=== PATIENT | male | born 1955 ===

== ENCOUNTER 2018-11-03 19:24 | Outpatient (REF) | payer BC, SELFPAY ==
[2018-11-03 19:42] LABS: Anion Gap 10.1 mmol/L (3-11); BUN 14 mg/dL (7-18); CO2 27.9 mmol/L (21.0-32.0); CREATININE 0.92 mg/dL (0.70-1.30); Chloride 105 mmol/L (98-107); Glucose 121 mg/dL (70-100); Potassium 4.2 mmol/L (3.5-5.1); Sodium 143 mmol/L (136-145); TSH 1.65 uIU/mL (0.358-3.74)
== END 2018-11-03 19:44 ==
LOC: NCHCN 19:24
PROVIDERS: PCP Internal Medicine; Visit Provider Internal Medicine
DX: M65.839 Other synovitis and tenosynovitis, unspecified forearm (principal); I10 Essential (primary) hypertension
CPT/HCPCS: 80048; 84443

== ENCOUNTER 2020-01-29 13:18 | Outpatient (REF) | payer MEDICAID, SELFPAY ==
[2020-01-29 20:30] LABS: Anion Gap 9.3 mmol/L (3-11); BUN 12 mg/dL (7-18); CO2 26.7 mmol/L (21.0-32.0); CREATININE 0.85 mg/dL (0.70-1.30); Calcium 9.2 mg/dL (8.5-10.1); Calculated LDL 122 mg/dL (<100); Chloride 103 mmol/L (98-107); Cholesterol 181 mg/dL (<200); Glucose 111 mg/dL (74-106); HDL Cholesterol 38 mg/dL (40-60); Potassium 4.4 mmol/L (3.5-5.1); Sodium 139 mmol/L (136-145); TSH 1.11 uIU/mL (0.36-3.74); Triglyceride 109 mg/dL (<150)
== END 2020-01-29 13:38 ==
LOC: NCHCN 13:18
PROVIDERS: PCP Internal Medicine; Visit Provider Internal Medicine
DX: Z00.00 Encounter for general adult medical examination without abnormal findings (principal)
CPT/HCPCS: 80048; 80061; 84443

== ENCOUNTER 2021-02-20 17:49 | Outpatient (REF) | payer MEDICAID, SELFPAY ==
[2021-02-20 19:48] LABS: Anion Gap 9.2 mmol/L (3-11); BUN 13 mg/dL (7-18); CO2 26.8 mmol/L (21.0-32.0); CREATININE 0.9 mg/dL (0.70-1.30); Chloride 107 mmol/L (98-107); Glucose 99 mg/dL (74-106); Potassium 3.8 mmol/L (3.5-5.1); Sodium 143 mmol/L (136-145)
== END 2021-02-20 17:50 | disposition home or self-care (01) ==
LOC: NCHCN 17:49
PROVIDERS: PCP Internal Medicine; Visit Provider Internal Medicine
DX: I10 Essential (primary) hypertension (principal); N20.9 Urinary calculus, unspecified; G56.22 Lesion of ulnar nerve, left upper limb
CPT/HCPCS: 80048

== ENCOUNTER 2022-02-26 17:02 | Outpatient (REF) | payer MEDICARE, SELFPAY ==
[2022-02-26 19:42] LABS: HCT 40.3 % (40.0-50.0); HGB 14.2 g/dL (13.5-17.5); MCH 32.2 pg (27.0-33.0); MCHC 35.2 % (32.0-36.0); MCV 91 fL (80-95); MPV 11.4 fL (8.0-11.0); Platelet Count 216 10^3/uL (130-400); RBC 4.41 10^6/uL (4.36-5.78); RDW-SD 40.4 fL; WBC 6.82 10^3/uL (4.4-10.8)
[2022-02-26 20:02] LABS: ALT 31 U/L (16-63); AST 29 U/L (15-37); Albumin 4.1 g/dL (3.4-5.0); Alkaline Phosphatase 68 U/L (46-116); BUN 14 mg/dL (7-18); Bilirubin, Total 0.6 mg/dL (0.2-1.0); CREATININE 0.8 mg/dL (0.70-1.30); Calcium 8.5 mg/dL (8.5-10.1); Chloride 108 mmol/L (98-107); Glucose 129 mg/dL (74-106); Potassium 3.8 mmol/L (3.5-5.1); Sodium 142 mmol/L (136-145); TSH 0.96 uIU/mL (0.36-3.74); Total Protein 7.1 g/dL (6.4-8.2)
== END 2022-02-26 17:03 | disposition home or self-care (01) ==
LOC: NCHCN 17:02
PROVIDERS: PCP Internal Medicine; Visit Provider Internal Medicine
DX: I10 Essential (primary) hypertension (principal); R53.83 Other fatigue; Z00.00 Encounter for general adult medical examination without abnormal findings
CPT/HCPCS: 80053; 85027; 84443

== ENCOUNTER 2023-02-28 14:14 | Outpatient (REF) | payer MEDICARE, SELFPAY ==
[2023-02-28 19:32] LABS: HCT 45.4 % (40.0-50.0); HGB 15.2 g/dL (13.5-17.5); MCH 31.5 pg (27.0-33.0); MCHC 33.5 % (32.0-36.0); MCV 94 fL (80-95); MPV 11.7 fL (8.0-11.0); Platelet Count 203 10^3/uL (130-400); RBC 4.83 10^6/uL (4.36-5.78); RDW 11.8 % (11.8-14.1); RDW-SD 40.9 fL; WBC 6.19 10^3/uL (4.4-10.8)
[2023-02-28 20:00] LABS: ALT 32 U/L (16-63); AST 33 U/L (15-37); Albumin 4.2 g/dL (3.4-5.0); Alkaline Phosphatase 68 U/L (46-116); Anion Gap 8.8 mmol/L (3-11); BUN 12 mg/dL (7-18); Bilirubin, Total 0.6 mg/dL (0.2-1.0); CO2 26.2 mmol/L (21.0-32.0); CREATININE 0.9 mg/dL (0.70-1.30); Calcium 8.9 mg/dL (8.5-10.1); Calculated LDL 109 mg/dL (<100); Chloride 107 mmol/L (98-107); Cholesterol 168 mg/dL (<200); Estimated GFR 94.19 (mL/min/1.73m2); Glucose 107 mg/dL (74-106); HDL Cholesterol 38 mg/dL (40-60); Potassium 4.3 mmol/L (3.5-5.1); Sodium 142 mmol/L (136-145); TSH 1.57 uIU/mL (0.36-3.74); Total Protein 7.2 g/dL (6.4-8.2); Triglyceride 108 mg/dL (<150)
== END 2023-02-28 14:15 | disposition home or self-care (01) ==
LOC: NCHCN 14:14
PROVIDERS: PCP Internal Medicine; Visit Provider Internal Medicine
DX: I10 Essential (primary) hypertension (principal); R53.83 Other fatigue; R00.1 Bradycardia, unspecified
CPT/HCPCS: 80053; 80061; 85027; 84443

== ENCOUNTER 2024-03-02 15:06 | Outpatient (REF) | payer MEDICARE, SELFPAY ==
[2024-03-02 20:02] LABS: Anion Gap 7.1 mmol/L (3-11); BUN 10 mg/dL (7-18); CO2 28.9 mmol/L (21.0-32.0); Calcium 9.4 mg/dL (8.5-10.1); Chloride 105 mmol/L (98-107); Estimated GFR 82.49 (mL/min/1.73m2); Glucose 119 mg/dL (74-106); Potassium 4.7 mmol/L (3.5-5.1); Sodium 141 mmol/L (136-145)
== END 2024-03-02 15:07 | disposition home or self-care (01) ==
LOC: NCHCN 15:06
PROVIDERS: PCP Internal Medicine; Visit Provider Internal Medicine
DX: I10 Essential (primary) hypertension (principal)
CPT/HCPCS: 80048

== ENCOUNTER 2024-03-04 00:38 | Outpatient (CLI) | payer MEDICARE, SELFPAY ==
--- NOTE | 2024-03-04 09:37 | DI.RAD_ITS ---
Exam(s) XR KNEE LT 3V AP,LAT,SUE EXAM: XR KNEE LT 3V AP,LAT,SUE CLINICAL HISTORY: IDIOPATHIC OSTEOARTRITIS,M19.91. TECHNIQUE: 2D digital imaging was performed of the left knee. Three images were obtained. AP, late ral and PA tunnel views were obtained. COMPARISON: No exams were available for comparison FINDINGS: BONES: No acute fracture is present. No bony destructive lesion is seen. There is an enthesophyte at the superior patella. JOINTS: Mild periarticular spurring is present. The joint spaces are otherwise well maintained. No joint effusion is seen. No loose body. SOFT TISSUE: Normal. IMPRESSION: Minimal osteoarthritis of the left knee. DATA REPOSITORY: RADIATION DOSE DELIVERED:
== END 2024-03-04 00:58 ==
LOC: DI 00:39
PROVIDERS: PCP Internal Medicine; Visit Provider Internal Medicine
DX: M17.12 Unilateral primary osteoarthritis, left knee (principal)
CPT/HCPCS: 73562

== ENCOUNTER 2024-05-18 15:24 | Outpatient (CLI) | payer MEDICARE, SELFPAY ==
--- NOTE | 2024-05-18 14:37 | DI.RAD_ITS ---
Exam(s) XR KNEE RT 4V AP,LAT,SUE,PAT EXAM: XR KNEE RT 4V AP,LAT,SUE,PAT CLINICAL HISTORY: right knee pain. TECHNIQUE: 2D digital imaging was performed of the right knee. Four views obtained. Merchant, AP, la teral and PA tunnel views were obtained. COMPARISON: No priors for comparison. FINDINGS: BONES: No acute fracture is present. No bony destructive lesion is seen. JOINTS: The knee is normally aligned. No joint effusion is seen. There is mild spurring seen at the l ateral aspect of the patella. SOFT TISSUE: Normal. IMPRESSION: Minimal degenerative changes seen in the right knee. DATA REPOSITORY: RADIATION DOSE DELIVERED:
--- NOTE | 2024-05-18 14:37 | DI.RAD_ITS ---
Exam(s) XR KNEE LT 1V EXAM: XR KNEE LT 1V CLINICAL HISTORY: left knee pain. TECHNIQUE: 2D digital imaging was performed. Merchant's view COMPARISON: CR XR KNEE LT 3V AP,LAT,SUE from 03/04/2024 FINDINGS: BONES: No acute fracture is present. No bony destructive lesion is seen. JOINTS: The patellofemoral joint is normally aligned. Mild periarticular spurring. No joint space n arrowing. Small subchondral cysts noted at patellar apex. No joint effusion is seen. SOFT TISSUE: Mild anterior soft tissue swelling. IMPRESSION: Patellofemoral joint space is maintained with mild periarticular spurring. Subchondral cysts noted a t patellar apex. DATA REPOSITORY: RADIATION DOSE DELIVERED:
== END 2024-05-18 15:25 | disposition home or self-care (01) ==
LOC: DIORS 15:25
PROVIDERS: PCP Internal Medicine; Referring Provider Internal Medicine; Visit Provider Student in an Organized Health Care Education/Training Program
DX: M17.11 Unilateral primary osteoarthritis, right knee; M17.12 Unilateral primary osteoarthritis, left knee; M23.91 Unspecified internal derangement of right knee; M23.92 Unspecified internal derangement of left knee
CPT/HCPCS: 99203; 73560; 73564

== ENCOUNTER 2024-11-19 17:28 | Outpatient (REF) | payer MEDICARE, SELFPAY ==
[2024-11-19 19:10] LABS: ESR 6 mm/hr (0-20); HCT 43.7 % (40.0-50.0); HGB 14.8 g/dL (13.5-17.5); MCH 31.8 pg (27.0-33.0); MCHC 33.9 % (32.0-36.0); MCV 94 fL (80-95); MPV 11.4 fL (8.0-11.0); Platelet Count 205 10^3/uL (130-400); RBC 4.66 10^6/uL (4.36-5.78); RDW 12.1 % (11.8-14.1); RDW-SD 41.7 fL; WBC 7.77 10^3/uL (4.4-10.8)
[2024-11-19 19:27] LABS: Anion Gap 7.5 mmol/L (3-11); BUN 14 mg/dL (7-18); CO2 28.5 mmol/L (21.0-32.0); Calcium 9.7 mg/dL (8.5-10.1); Chloride 106 mmol/L (98-107); Estimated GFR 81.98 (mL/min/1.73m2); Glucose 104 mg/dL (74-106); Potassium 4.5 mmol/L (3.5-5.1); Sodium 142 mmol/L (136-145); Uric Acid 4.3 mg/dL (3.5-7.2)
[2024-11-19 19:29] LABS: C-Reactive Protein < 0.50 mg/dL (<or=0.5)
[2024-11-20 18:32] LABS: Rheumatoid Factor <8.6 IU/mL (<12.0)
== END 2024-11-19 17:29 | disposition home or self-care (01) ==
LOC: NCHCN 17:28
PROVIDERS: PCP Internal Medicine; Visit Provider Internal Medicine
DX: I10 Essential (primary) hypertension (principal); M19.042 Primary osteoarthritis, left hand
CPT/HCPCS: 80048; 85027; 85652; 84550; 86140; 86431

== ENCOUNTER 2025-03-04 18:08 | Outpatient (REF) | payer MEDICARE, SELFPAY ==
[2025-03-04 19:03] LABS: Anion Gap 11.8 mmol/L (3-11); BUN 10 mg/dL (7-18); CO2 24.2 mmol/L (21.0-32.0); Calcium 8.8 mg/dL (8.5-10.1); Calculated LDL 86 mg/dL (<100); Chloride 105 mmol/L (98-107); Cholesterol 162 mg/dL (<200); Estimated GFR 96.40 (mL/min/1.73m2); Glucose 131 mg/dL (74-106); HDL Cholesterol 34 mg/dL (>or=40); Potassium 4.2 mmol/L (3.5-5.1); Sodium 141 mmol/L (136-145); Triglyceride 212 mg/dL (<150)
== END 2025-03-04 18:09 | disposition home or self-care (01) ==
LOC: NCHCN 18:08
PROVIDERS: PCP Internal Medicine; Visit Provider Internal Medicine
DX: I10 Essential (primary) hypertension (principal)
CPT/HCPCS: 80048; 80061